=== PATIENT | female | born 1985 | race American Indian/Alaskan Native ===

== ENCOUNTER 2019-06-29 07:50 | Emergency (ER) | payer MEDICARE ==
[2019-06-29 08:00] VITALS: BP 164/110
[2019-06-29 09:02] LABS: Bacteria,Urine 2+ /HPF (Negative); Bilirubin,Urine NEG (Negative); Blood,Urine NEG (Negative); Color,Urine Yellow (Yellow); Mucus,Urine 1+ /HPF; Protein,Urine <15 mg/dL mg/dL (Negative)
--- NOTE | 2019-06-29 09:08 | Emergency Department Report ---
Chief Complaint: Medical Clearance Stated Complaint: GENERAL ILLNESS Time Seen by Provider: 06/29/19 08:16 - HPI History of Present Illness: 33-year-old female presents the ED stating that she heard a really little rumbling on her stomach today. Patient is very vague about her complaints.. Patient states that the color of the urine was a bit off this morning. Patient denies any unusual meals, fever, chills, nausea vomiting diarrhea Patient is ambulatory without any problems she is in no acute distress. Patient denies any abdominal pain, chest pain, shortness of breath. Patient basically presents because she states she is concerned that her urine was of a different color. - ROS Review of Systems: ED normal as noted in HPI - Exam Vital Signs: Vital Signs 06/29/19 07:57 Temperature 99.9 F H Pulse Rate 109 H Respiratory 18 Rate Blood Pressure 164/110 O2 Sat by Pulse 97 Oximetry Physical Exam: GENERAL: Alert and oriented x3, no apparent distress, Normal Gait, atraumatic. HEAD: Head is normocephalic and a-traumatic. SKIN: Warm and dry, No lesions, No ulceration or induration present. MSE screening note: Focused history and physical exam performed. Due to findings the following was ordered: ED Medical Decision Making - Medical Decision Making 33-year-old female presents with concerns of darker urine. Patient had no other complaints. She had no acute distress. Patient left prior to urinalysis results and. ED Disposition for MSE Clinical Impression: Urine discoloration, UTI (urinary tract infection) Disposition: MED SCREENING EXAM-LEFT Is pt being admited?: No Does the pt Need Aspirin: No Condition: Stable Instructions: Urinary Tract Infection in Women (ED) Additional Instructions: Make sure to follow up with the primary care physician as discussed. Take all your medications as you've been prescribed. If you have any worsening symptoms or develop new symptoms please return to ED immediately. Prescriptions: Ciprofloxacin HCl [Ciprofloxacin TAB] 500 mg PO Q12HR #14 tab Referrals: PRIMARY CARE [Primary Care Provider] - 3-5 Days Time of Disposition: 09:17
== END 2019-06-29 09:09 | disposition left against medical advice (07) ==
LOC: ED 07:50
DX: N39.0 Urinary tract infection, site not specified (principal)
CPT/HCPCS: 81001; 87086; 99282